=== PATIENT | male | born 1995 | race Caucasian/White ===

== ENCOUNTER 2018-01-11 23:18 | Emergency (ER) | payer OTHER ==
[~2018-01-11] VITALS: Ht 182.9 cm; Wt 86.2 kg
[~2018-01-11 23:18] MED LIST: ABILIFY 5 MG TAB5 M1 PO; BENADRYL25 MG PO; CARBAMAZEPINE200 M2 PO; FLEXERIL PO; LOXAPINE10 MG; MEDROLDOSEPACK PO; NOHOMEMEDICATIONS; NORCO 5-325 TA1 EACH PO
[2018-01-11 23:26] VITALS: BP 138/86
[2018-01-11] MEDS ORDERED: NAPROSYN500 MG PO (23:33)
[2018-01-11] MEDS ORDERED: NORFLEX100 MG PO (23:33)
[2018-01-11] MEDS ORDERED: TRAMADOL 50 MG50 MG PO (23:33)
== END 2018-01-11 23:46 | disposition home or self-care (01) ==
LOC: M.ERS 23:18
DX: S39.012A Strain of muscle, fascia and tendon of lower back, initial encounter (principal); F31.9 Bipolar disorder, unspecified; X58.XXXA Exposure to other specified factors, initial encounter; Y93.89 Activity, other specified; Y92.89 Other specified places as the place of occurrence of the external cause; Y99.8 Other external cause status

== ENCOUNTER 2018-06-02 08:43 | Emergency (ER) | payer OTHER ==
[~2018-06-02] VITALS: Ht 182.9 cm; Wt 90.7 kg
[~2018-06-02 08:43] MED LIST changes: +NAPROSYN500 MG PO; +NORFLEX100 MG PO; +TRAMADOL 50 MG50 MG PO
[2018-06-02] MEDS ORDERED: NORCO 5-325 TA1 EACH PO (09:31)
[2018-06-02 09:40] VITALS: BP 102/85
== END 2018-06-02 09:41 | disposition home or self-care (01) ==
LOC: M.ERS 08:43
DX: S92.421A Displaced fracture of distal phalanx of right great toe, initial encounter for closed fracture (principal); F31.9 Bipolar disorder, unspecified; W22.8XXA Striking against or struck by other objects, initial encounter; Y92.89 Other specified places as the place of occurrence of the external cause; Y93.89 Activity, other specified; Y99.8 Other external cause status

== ENCOUNTER 2018-08-08 00:01 | Emergency (ER) | payer OTHER ==
[~2018-08-08] VITALS: Ht 182.9 cm; Wt 93.0 kg
[2018-08-08] MEDS ORDERED: NORCO 5-325 TA1 EACH PO (00:15)
[2018-08-08 00:43] VITALS: BP 127/72
== END 2018-08-08 00:43 | disposition home or self-care (01) ==
LOC: M.ERS 00:01
DX: S92.512A Displaced fracture of proximal phalanx of left lesser toe(s), initial encounter for closed fracture (principal); S90.32XA Contusion of left foot, initial encounter; F31.9 Bipolar disorder, unspecified; W22.8XXA Striking against or struck by other objects, initial encounter; Y93.89 Activity, other specified; Y92.89 Other specified places as the place of occurrence of the external cause; Y99.8 Other external cause status

== ENCOUNTER 2019-07-03 22:48 | Inpatient (IN) | payer OTHER ==
[~2019-07-03] VITALS: Ht 182.9 cm; Wt 87.1 kg
--- NOTE | ~2019-07-03 | CON ---
[address] [address] CONSULTATION Name: SAURAV ROMANO Room: [address] ADM IN M.R.#: [id number] Admission: 07/04/19 Attend Phys: Eze Michaels MD Discharge: Date of : 89 Report #: [id number] THIS REPORT FOR: //name// CC: Eze Michaels [facility] physician/PCP DATE OF SERVICE: 07/04/2019 HISTORY OF PRESENT ILLNESS: This 24-year-old male patient was evaluated by me for seizures. He had 2 seizures. One of them was about 2 weeks ago. He indicated that he was buying up to [address] He will take several of them in a day. Then, he ran out of that and could not buy more because of money problem. Then, he had a grand mal seizure for which he did not seek medical attention. He does not know how many days after stopping the Xanax he had a seizure, but indicates it was a couple of days. At this time, he drank Croatian hard liquor and drank about 2 bottles. Then, he did not drink anything for 3 days and then he had another grand mal seizure. He is a heavy marijuana user and he used other drugs intermittently. REVIEW OF SYSTEMS: Indicates that he has a history of depression. He was admitted to [facility] as a teenager. He also went to [facility]. He never followed up with them. He said he did not have any money to follow up. His 14-point review of systems was carried out and it would appear it is unremarkable. He is complaining of pain in the right hip area, this is after the fall. One time, he was diagnosed as a bipolar disorder. Rest of the 14-point review of systems was noncontributory. PAST MEDICAL HISTORY: Negative for seizure except one 2 weeks ago. FAMILY HISTORY: Negative for any early age strokes. SOCIAL HISTORY: He drinks intermittently, but when he drinks alcohol, he drinks heavily. He is a heavy marijuana user. PHYSICAL EXAMINATION: NEUROLOGIC: The patient's examination indicates he is alert, responsive, and able to follow simple and complex command. His speech, concentration, fund of knowledge, and memory is at his baseline. His cranial nerve examination is unremarkable. Neuromuscular examination is difficult to carry out because he is complaining of pain in the right hip area, but rest three extremities look unremarkable. He has a position sense on both sides. The best I can tell, his reflexes are symmetrical. He has no meningeal sign. I could not look at the patient's fundus. GENERAL: He is a well-developed individual. His hearing and vision looks intact. VITAL SIGNS: His blood pressure is 119/60, pulse is 85, temperature is 98.8, [place] [address] CONSULTATION Name: SAURAV ROMANO Room: [address] IN [facility]#: [id number] Admission: 07/04/19 Attend Phys: Eze Michaels MD Discharge: Date of : 89 Report #: [id number] and respiration is 18. LABORATORY DATA: Labs indicate a normal white count and sodium is also normal when he came in. His magnesium was also normal. He did have a CT scan of the head in the Emergency Room and that does not appear to be showing any definite abnormality. IMPRESSION AND PLAN: 1. New onset seizure. It is most likely that the first seizure was secondary to Xanax withdrawal and second seizure was secondary to alcohol withdrawal. I discussed with the patient that he had 2 seizures. He has an option of going on medications to prevent further seizures. He does not think he can afford that. If he needs to go on medications, then I will suggest Lamictal which will help his bipolar disorder also. 2. Long-standing history of depression for which he needs a psych evaluation and followup. The patient indicates that if his workup is unremarkable, he will not like to go on any seizure medication, but he will take seizure precautions including the fact that he cannot drive at least for 6 months. It is interesting that his mother also has similar problems where she drinks alcohol a lot and then she has a seizure. She is not on any anticonvulsant either. All of it was discussed with the patient in detail. I talked to the hospitalist and discussed the patient with him. I also talked to the nurses looking after this patient. By: [id number] Chowdary MD /nt
--- NOTE | ~2019-07-03 | EEG ---
[address] [address] EEG STUDY REPORT Name: SAURAV ROMANO Room: [address] IN ..#: [id number] Admission: 07/04/19 Attend Phys: Eze Michaels MD Discharge: Date of : 89 Report #: [id number] THIS REPORT FOR: //name// CC: Eze Michaels [facility] physician/PCP DATE OF SERVICE: 07/04/2019 This patient is being admitted for seizure. EEG was done by placing the electrode by standard 10-20 system of electrode placement. Both referential and sequential montages were used for recording. Background activity in this patient's EEG is about 11 Hz and 40 microvolts. The patient went to sleep that is associated with bilateral slowing and vertex sharp waves. Photic stimulation is unremarkable. Throughout the record, no active epileptiform activity was noticed. IMPRESSION: This patient's EEG is within normal limit. By: [id number] Chowdary MD /nt
[2019-07-03 22:48] VITALS: BP 162/84
[2019-07-03 23:37] LABS: ABSOLUTE EOSINOPHILS 0.1 thou/uL (0.0-0.7); ABSOLUTE LYMPHOCYTES 2.6 thou/uL (0.8-5.3); ABSOLUTE MONOCYTES 0.8 thou/uL (0.0-1.2); ABSOLUTE NEUTROPHILS 7.6 thou/uL (1.6-8.1); BASOPHILS 0.3 %; EOSINOPHILS 0.5 %; HEMATOCRIT 45.3 % (42.0-52.0); HEMOGLOBIN 15.5 gm/dL (14.0-18.0); LYMPHOCYTES 23.2 %; MCH 29.1 pg (26.0-34.0); MCHC 34.2 g/dL (28.0-37.0); MONOCYTES 6.9 %; MPV 8.1 fl. (7.2-11.1); NUCLEATED RBCS 0 /100WBC; PLATELET COUNT* 368 thou/uL (150-400); POLYS 69.1 %; RBC 5.33 mil/uL (4.50-6.00); RDW-CV 12.6 % (10.5-14.5)
[2019-07-03 23:45] LABS: CALCIUM 9.1 mg/dL (8.5-10.1); CREATININE 1.1 mg/dL (0.6-1.3); POTASSIUM 3.9 mmol/L (3.5-5.1)
[2019-07-03 23:50] LABS: PROTIME 10.7 Seconds (9.20-11.50)
[2019-07-03 23:56] LABS: ALBUMIN 4.5 g/dL (3.4-5.0); MAGNESIUM 1.8 mg/dL (1.8-2.4); TOTAL BILIRUBIN 0.5 mg/dL (<0.1-1.0)
[2019-07-04 02:10] VITALS: BP 119/60
[2019-07-04 03:11] LABS: URINE BILIRUBIN NEGATIVE (Negative); URINE BLOOD 1+ (Negative); URINE CLARITY CLEAR; URINE COLOR YELLOW; URINE GLUCOSE-RANDOM NEGATIVE (Negative); URINE KETONES NEGATIVE (Negative); URINE LEUKOCYTES-REFLEX NEGATIVE (Negative); URINE NITRITE-REFLEX NEGATIVE (Negative); URINE PROTEIN TRACE (Negative); URINE SPECIFIC GRAVITY >= 1.030 (1.005-1.030); URINE UROBILINOGEN 0.2 E.U./dl (0.2-1.0)
[2019-07-04 03:22] LABS: AMP/METHAMP Negative (Negative); BARBITURATES Negative (Negative); BENZODIAZEPINES POSITIVE (Negative); COCAINE POSITIVE (Negative); METHADONE Negative (Negative); OPIATES Negative (Negative); PCP Negative (Negative); THC POSITIVE (Negative)
[2019-07-04 03:27] LABS: BACTERIA-REFLEX 1-9 Few /HPF (None Seen); CASTS None Seen /LPF (None Seen); CRYSTALS None Seen /LPF (None Seen); SQUAMOUS >10 Many /LPF (0-3); URINE RBC 0-2 Rare /HPF (0-2); URINE WBC-REFLEX 0-5 Rare /HPF (0-5)
--- NOTE | 2019-07-04 14:35 | EKG ---
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1995 Requested By: Nolvia Sanchez Order Number: [id number] MD: Alexsander Benitez Measurements Intervals [place] Rate: 107 P: 60 [place]: 126 QRS: 70 QRSD: 95 T: -14 QT: 319 QTc: 426 Interpretive Statements Sinus tachycardia Borderline T abnormalities, inferior leads No previous ECG available for comparison Electronically Signed On 07-04-2019 14:35:07 NET FISHER by Alexsander Benitez [email or web address] <ELECTRONICALLY SIGNED> By: Alexsander Benitez MD, [facility] 07/04/19 1435 [id number] 225 Alexsander Benitez MD, FACC /EPI
[2019-07-04 19:31] VITALS: BP 131/50
[2019-07-05 03:49] VITALS: BP 118/66
[2019-07-05 04:49] LABS: ABSOLUTE EOSINOPHILS 0.1 thou/uL (0.0-0.7); ABSOLUTE LYMPHOCYTES 2.2 thou/uL (0.8-5.3); ABSOLUTE MONOCYTES 0.6 thou/uL (0.0-1.2); ABSOLUTE NEUTROPHILS 4.5 thou/uL (1.6-8.1); BASOPHILS 0.4 %; EOSINOPHILS 1.3 %; HEMATOCRIT 42.4 % (42.0-52.0); HEMOGLOBIN 14.6 gm/dL (14.0-18.0); LYMPHOCYTES 29.5 %; MCH 29.4 pg (26.0-34.0); MCHC 34.4 g/dL (28.0-37.0); MCV 85.5 fL (80.0-100.0); MONOCYTES 8.1 %; MPV 7.8 fl. (7.2-11.1); NUCLEATED RBCS 0 /100WBC; POLYS 60.7 %; RBC 4.96 mil/uL (4.50-6.00); RDW-CV 13.2 % (10.5-14.5); WBC 7.3 thou/uL (4.0-11.0)
[2019-07-05 04:55] LABS: CALCIUM 8.6 mg/dL (8.5-10.1); CREATININE 0.8 mg/dL (0.6-1.3); POTASSIUM 3.9 mmol/L (3.5-5.1)
[2019-07-05 05:00] LABS: PLATELET COUNT* 235 thou/uL (150-400)
[2019-07-05 08:15] VITALS: BP 116/46
[2019-07-05] MEDS ORDERED: VITAMIN B-1100 M2 PO (09:47)
[2019-07-05] MEDS ORDERED: FAMOTIDINE 20 M20 MG PO (09:48)
[2019-07-05] MEDS ORDERED: ENBRACE HR SOF1 EACH PO (09:49)
[2019-07-05] MEDS ORDERED: ENOXAPARIN40 MG/0.1 SUBQ (09:51)
[2019-07-05] MEDS ORDERED: PROTONIX40 M2 PO (09:52)
[2019-07-05] MEDS ORDERED: TYLENOL325 MG PO (09:54)
[2019-07-05] MEDS ORDERED: FLUMAZENIL0.1 MG/1 M IV (09:57)
[2019-07-05] MEDS ORDERED: HYDRALAZIN20 MG/1 ML IV (10:00)
[2019-07-05] MEDS ORDERED: NORCO 5-325 TA1 EAC1 PO ×2 (10:02→10:04)
[2019-07-05] MEDS ORDERED: LORAZEPAM 1 MG T1 MG PO (10:12)
[2019-07-05] MEDS ORDERED: LORAZEPAM2 MG/1 M1 IV PUSH (10:15)
[2019-07-05] MEDS ORDERED: ONDANSETRON2 MG/1 ML IV PUSH (10:18)
[2019-07-05] MEDS ORDERED: MIRALAX119 GM PO (10:19)
[2019-07-05 10:25] VITALS: BP 116/46
[2019-07-05 11:00] VITALS: BP 116/46
== END 2019-07-05 11:01 | disposition home or self-care (01) | DRG 101 ==
LOC: M.ERS 22:48 → M.TBA-ER 07-04 01:22 → M.ICU 07-04 01:22
PROVIDERS: Emergency Medicine; ADMIT Internal Medicine
DX: R56.9 Unspecified convulsions (principal); F32.9 Major depressive disorder, single episode, unspecified; F19.10 Other psychoactive substance abuse, uncomplicated; F41.9 Anxiety disorder, unspecified; Z87.81 Personal history of (healed) traumatic fracture; Z79.899 Other long term (current) drug therapy

== ENCOUNTER 2020-07-29 19:21 | Emergency (ER) | payer OTHER ==
[~2020-07-29] VITALS: Ht 182.9 cm; Wt 90.7 kg
[~2020-07-29 19:21] MED LIST changes: +ENBRACE HR SOF1 EACH PO; +ENOXAPARIN40 MG/0.1 SUBQ; +FAMOTIDINE 20 M20 MG PO; +FLUMAZENIL0.1 MG/1 M IV; +HYDRALAZIN20 MG/1 ML IV; +LORAZEPAM 1 MG T1 MG PO; +LORAZEPAM2 MG/1 M1 IV PUSH; +MIRALAX119 GM PO; +NORCO 5-325 TA1 EAC1 PO; +ONDANSETRON2 MG/1 ML IV PUSH; +PROTONIX40 M2 PO; +TYLENOL325 MG PO; +VITAMIN B-1100 M2 PO
[2020-07-29] MEDS ORDERED: NAPROSYN500 MG PO (20:23)
[2020-07-29 20:35] VITALS: BP 132/74
== END 2020-07-29 20:35 | disposition home or self-care (01) ==
LOC: M.ERS 19:21
DX: S60.222A Contusion of left hand, initial encounter (principal); W23.0XXA Caught, crushed, jammed, or pinched between moving objects, initial encounter; Y93.89 Activity, other specified; Y92.89 Other specified places as the place of occurrence of the external cause; Y99.8 Other external cause status

== ENCOUNTER 2020-09-25 19:41 | Emergency (ER) | payer OTHER ==
[~2020-09-25] VITALS: Ht 182.9 cm; Wt 90.7 kg
[2020-09-25 20:17] LABS: ABSOLUTE BASOPHILS 0.1 thou/uL (0.0-0.2); ABSOLUTE EOSINOPHILS 0.1 thou/uL (0.0-0.7); ABSOLUTE LYMPHOCYTES 2.2 thou/uL (0.8-5.3); ABSOLUTE MONOCYTES 0.7 thou/uL (0.0-1.2); ABSOLUTE NEUTROPHILS 8.3 thou/uL (1.6-8.1); BASOPHILS 0.5 %; HEMATOCRIT 44.4 % (42.0-52.0); HEMOGLOBIN 15.3 gm/dL (14.0-18.0); LYMPHOCYTES 19.1 %; MCH 28.9 pg (26.0-34.0); MCHC 34.4 g/dL (28.0-37.0); MCV 84.1 fL (80.0-100.0); MONOCYTES 6.1 %; MPV 7.4 fl. (7.2-11.1); NUCLEATED RBCS 0 /100WBC; PLATELET COUNT* 257 thou/uL (150-400); POLYS 73.3 %; RBC 5.28 mil/uL (4.50-6.00); RDW-CV 12.3 % (10.5-14.5); WBC 11.4 thou/uL (4.0-11.0)
[2020-09-25 20:28] LABS: CALCIUM 8.6 mg/dL (8.5-10.1); CREATININE 1.1 mg/dL (0.6-1.3); POTASSIUM 3.8 mmol/L (3.5-5.1)
[2020-09-25 20:33] LABS: ALBUMIN 3.9 g/dL (3.4-5.0); TOTAL BILIRUBIN 0.5 mg/dL (<0.1-1.0); TOTAL PROTEIN 7.7 g/dL (6.4-8.2)
[2020-09-25 20:40] LABS: URINE BILIRUBIN NEGATIVE (Negative); URINE BLOOD 1+ (Negative); URINE CLARITY CLEAR; URINE COLOR YELLOW; URINE GLUCOSE-RANDOM NEGATIVE (Negative); URINE KETONES NEGATIVE (Negative); URINE LEUKOCYTES-REFLEX NEGATIVE (Negative); URINE NITRITE-REFLEX NEGATIVE (Negative); URINE PROTEIN 1+ (Negative); URINE SPECIFIC GRAVITY >= 1.030 (1.005-1.030); URINE UROBILINOGEN 0.2 E.U./dl (0.2-1.0)
[2020-09-25 20:49] LABS: CRYSTALS None Seen /LPF (None Seen); HYALINE CASTS 0-3 Few /LPF (None Seen); MUCUS None Seen strn/LPF (None Seen); SQUAMOUS NONE SEEN /LPF (0-3)
[2020-09-25 20:50] LABS: AMP/METHAMP Negative (Negative); BACTERIA-REFLEX None Seen /HPF (None Seen); BARBITURATES Negative (Negative); BENZODIAZEPINES Negative (Negative); COCAINE Negative (Negative); METHADONE Negative (Negative); OPIATES Negative (Negative); PCP Negative (Negative); THC POSITIVE (Negative); URINE RBC 0-2 Rare /HPF (0-2); URINE WBC-REFLEX 0-5 Rare /HPF (0-5)
[2020-09-25 21:35] VITALS: BP 148/80
--- NOTE | 2020-09-26 11:57 | EKG ---
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1995 Requested By: Nithya Basurto Order Number: [id number] Juan MD: Alexsander Benitez Measurements Intervals [place] Rate: 80 P: 21 [place]: 143 QRS: 34 QRSD: 97 T: -1 QT: 370 QTc: 427 Interpretive Statements Sinus rhythm Baseline wander in lead(s) II,III,aVF Compared to ECG 07/03/2019 22:54:47 Sinus tachycardia no longer present T-wave abnormality no longer present Electronically Signed On 09-26-2020 11:56:53 CDT by Alexsander Benitez [email or web address] <ELECTRONICALLY SIGNED> By: Alexsander Benitez MD, FAC 09/26/20 1156 47 47 Alexsander Benitez MD, FAC /EPI
== END 2020-09-25 21:35 | disposition home or self-care (01) ==
LOC: M.ERS 19:41
PROVIDERS: Personal Emergency Response Attendant
DX: R56.9 Unspecified convulsions (principal); R51.9 Headache, unspecified; F31.9 Bipolar disorder, unspecified